=== PATIENT | female | born 1930 | race Caucasian/White ===

== ENCOUNTER → 2016-07-25 | Outpatient (CLI) | payer MEDICARE ==
[2016-07-25 07:21] LABS: Basophils # (A) 0.1 k/uL (0-0.2); Basophils % (A) 1 %; CH 33.5; CHCM 34.9; Eosinophils # (A) 0.2 k/uL (0-0.7); Eosinophils % (A) 3 %; HCT 43.6 % (34.0-46.0); HDW 2.93; HGB 14.7 gm/dL (11.4-16.0); Luc # (Auto) 0.24; Luc % (Auto) 4; Lymphocytes # (A) 1.3 k/uL (1.0-4.8); Lymphocytes % (A) 19 %; MCH 32.7 pg (25.0-35.0); MCHC 33.8 g/dL (31.0-37.0); MCV 96.6 fL (80.0-100.0); Monocytes # (A) 0.6 k/uL (0-1.0); Monocytes % (A) 8 %; Neutrophils # (A) 4.4 k/uL (1.3-7.7); Neutrophils % (A) 65 %; RBC 4.51 m/uL (3.80-5.40); RDW 13.1 % (11.5-15.5); WBC 6.7 k/uL (3.8-10.6); WBC (Perox) 7.19
[2016-07-25 07:53] LABS: ALT 28 U/L (9-52); AST 22 U/L (14-36); Alkaline Phosphatase 41 U/L (38-126); Anion Gap 8 mmol/L; Blood Urea Nitrogen 21 mg/dL (7-17); Calcium 9.5 mg/dL (8.4-10.2); Carbon Dioxide 31 mmol/L (22-30); Chloride 103 mmol/L (98-107); Cholesterol 186 mg/dL (<200); Glucose 96 mg/dL (74-99); HDL Cholesterol 41 mg/dL (40-60); Non-African American GFR(MDRD) >60 (>60 ml/min/1.73 sqM); Potassium 4.3 mmol/L (3.5-5.1); Sodium 142 mmol/L (137-145); Total Bilirubin 0.9 mg/dL (0.2-1.3); Total Protein 7.2 g/dL (6.3-8.2); Triglycerides 249 mg/dL (<150)
== END | disposition home or self-care (01) ==
LOC: LABWHC1 06:37
PROVIDERS: ATTEND Internal Medicine Cardiovascular Disease
DX: E78.5 Hyperlipidemia, unspecified (principal); I10 Essential (primary) hypertension; R06.02 Shortness of breath; I25.10 Atherosclerotic heart disease of native coronary artery without angina pectoris
CPT/HCPCS: 36415; 80053; 80061; 83880; 84439; 84443; 85025

== ENCOUNTER → 2016-10-27 | Outpatient (CLI) | payer MEDICARE ==
[2016-10-27 10:54] LABS: CHCM 34.4; HCT 40.8 % (34.0-46.0); HDW 2.73; HGB 13.7 gm/dL (11.4-16.0); MCH 32.3 pg (25.0-35.0); MCHC 33.5 g/dL (31.0-37.0); MCV 96.4 fL (80.0-100.0); Mean Platelet Volume 7.9; RBC 4.24 m/uL (3.80-5.40); WBC 7.1 k/uL (3.8-10.6)
[2016-10-27 11:08] LABS: Anion Gap 8 mmol/L; Blood Urea Nitrogen 23 mg/dL (7-17); Carbon Dioxide 29 mmol/L (22-30); Chloride 102 mmol/L (98-107); Non-African American GFR(MDRD) >60 (>60 ml/min/1.73 sqM); Potassium 4.3 mmol/L (3.5-5.1); Sodium 139 mmol/L (137-145)
== END | disposition home or self-care (01) ==
LOC: LABPAT 10:23
PROVIDERS: ATTEND Internal Medicine Cardiovascular Disease
DX: Z01.812 Encounter for preprocedural laboratory examination (principal); R07.9 Chest pain, unspecified
CPT/HCPCS: 80051; 82565; 84520; 85027

== ENCOUNTER 2016-11-05 09:24 | Inpatient (IN) | payer MEDICARE ==
[2016-10-31 11:24] VITALS: BMI 34.9
[~2016-11-05 09:24] MED LIST: ALPRAZolam 0.25 MG TAB PO PRN; ALPRAZolam 0.5 MG TAB PO PRN; ASPIRIN 325 MG TAB PO STA; ATORVASTATIN 80 MG TAB PO STA; NITROGLYCERIN SL TABS 0.4 MG TAB SUBLINGUAL PRN; SODIUM CHLORIDE 0.9% 1,000 ML in EMPTY BAG 1 BAG IV ONE
[2016-11-05] MEDS ORDERED: LIDOCAINE 2% INJ 20 MG/ML (20 ML MDV) ONE (10:23)
[2016-11-05] MEDS ORDERED: fentaNYL (PF) 50 MCG/ML 2 ML AMP ONE (10:37)
[2016-11-05] MEDS ORDERED: diphenhydrAMINE 50 MG/ML 1 ML VIAL ONE (10:37)
[2016-11-05] MEDS ORDERED: fentaNYL (PF) 50 MCG/ML 2 ML AMP IVP ONE (10:47)
[2016-11-05] MEDS ORDERED: diphenhydrAMINE 50 MG/ML 1 ML VIAL IVP ONE (10:47)
[2016-11-05] MEDS ORDERED: LIDOCAINE 2% INJ 20 MG/ML SQ ONE (10:51)
[2016-11-05] MEDS ORDERED: IOHEXOL 350 MG/ML 125ML BOTTLE INJ ONE (11:28)
[2016-11-05] MEDS ORDERED: RX INFO: IV CONTRAST WAS GIVEN 1 EACH MISC MISCELLANE PRN (11:42)
[2016-11-05] MEDS ORDERED: FUROSEMIDE 10 MG/ML 4 ML VIAL ONE (11:43)
[2016-11-05] MEDS ORDERED: FUROSEMIDE 10 MG/ML 4 ML VIAL IVP ONE (11:45)
[2016-11-05] MEDS ORDERED: POTASSIUM CHLORIDE ER 10 MEQ TAB.ER.PRT PO STA (11:51)
[2016-11-05] MEDS ORDERED: LABETALOL 5 MG/ML VIAL MDV ONE (11:54)
--- NOTE | 2016-11-05 11:57 | P.PCN ---
Date of Procedure: 11/05/16 Preoperative Diagnosis: Exertional shortness of breath and positive stress test Postoperative Diagnosis: Total occlusion of graft to the RCA. Left main disease with a patent graft to the LAD and OM branch of circumflex. Procedure(s) Performed: Left heart catheterization with selective coronary arteriography, selective injection of the 2 vein grafts and the SCHULTE graft. No LV gram Implants: Indications for Procedure: Operative Findings: Description of Procedure: HISTORY: This is a 86-year-old female with history of ischemic heart disease with previous bypass surgery with the SCHULTE graft to LAD, vein graft to the distal circumflex and the vein graft to the RCA. Patient has been complaining of exertional shortness of breath. She had a nuclear stress test that showed ischemia in the inferior wall. Patient is advised to have cardiac catheterization to see if there is any progression of ischemic heart disease. CONSENT:I have discussed the risks, benefits and alternative therapies for the above-mentioned procedure and for both sedation/analgesia as well as necessary blood product administration, if indicated, as they pertain to this patient. The patient has indicated understanding and acceptance of the risks and procedures discussed. CONSCIOUS SEDATION: Patient was given fentanyl 25 g. The duration of the sedation is 45 minutes. PROCEDURE: Patient was brought to the lab in a fasting state. Patient was given some IV sedation. The right groin is infiltrated with lidocaine and right femoral artery was entered using Seldinger technique. A 6-Marshallese catheter was left in place and selective coronary arteriography and left ventriculography was performed. Patient tolerated the procedure well. Femoral angiogram was performed and Angio-Seal was applied for hemostasis. No immediate complications were noted and patient was transferred to [facility] in a stable condition HEMODYNAMICS: The aortic pressure is 130/70. Left lower end-diastolic pressure is 25. There was no gradient across the aortic valve SELECTIVE CORONARY ARTERIOGRAPHY: LEFT MAIN: This is a normal length vessel with ostial stenosis of about 60 to 70%. 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 THE LEFT ANTERIOR DESCENDING CORONARY ARTERY: This is a good caliber vessel giving rise to 2 diagonal branches. The mid LAD has a long segment of disease with about 70% luminal narrowing. The distal LAD is seems to be free of any occlusive disease. There is a competitive flow from the SCHULTE to the distal LAD. THE LEFT CIRCUMFLEX AND IS CORONARY ARTERY: The circumflex and is coronary artery is a moderate caliber vessel with 2 OM branches and the distal PLV branch. THE RIGHT CORONARY ARTERY: This is totally occluded at the ostium and could not be selectively studied. The THE VEIN GRAFT TO THE RCA: This is totally occluded in the proximal anastomosis. THE VEIN GRAFT TO THE DISTAL CIRCUMFLEX: This is patent at the proximal and also distal anastomosis and throat its length. The distal circumflex has mild disease. THE SCHULTE GRAFT TO THE LAD: This is patent throat its length and also at least anastomosis. Excellent flows is seen to the distal LAD. LEFT VENTRICULOGRAPHY: This was not performed FINAL IMPRESSION: #1. Moderate to severe left main ostial stenosis with ectatic changes in the distal vessel. #2. Good caliber LAD with moderate to severe disease involving the midportion. #3. The circumflex coronary artery has 2 OM branches. The distal circumflex has bypass graft attached which is patent. #4. The SCHULTE graft to the LAD is patent. #5. The vein graft to the distal circumflex is patent. #6. The vein graft to the RCA is totally occluded. #7. There is elevated end-diastolic pressure. PLAN: Maximum medical therapy. Attempts could be made to stent the left main because it still supplying the diagonal branches and also OM branch of the circumflex. PROGNOSIS: Guarded
[2016-11-05] MEDS ORDERED: LABETALOL 5 MG/ML VIAL MDV IVP STA (12:01)
[2016-11-05] MEDS: SODIUM CHLORIDE 0.9% 1,000 ML IV SCH ×2 (14:45→21:41)
[2016-11-05] MEDS: FUROSEMIDE 20 MG TAB PO SCH (15:45)
[2016-11-05] MEDS: BRIMONIDINE TARTRATE 0.2% DROPS 5 ML BTL BOTH EYES SCH (20:12)
[2016-11-05] MEDS: METOPROLOL TARTRATE 50 MG TAB PO SCH (20:13)
[2016-11-05] MEDS: PRAVASTATIN SODIUM 40 MG TAB PO SCH (20:13)
[2016-11-05] MEDS: LATANOPROST 0.005% OPHTH DROPS 2.5 ML BTL BOTH EYES SCH (21:38)
[2016-11-06] MEDS: SODIUM CHLORIDE 0.9% 1,000 ML IV SCH (05:51)
[2016-11-06] MEDS: LEVOTHYROXINE 137 MCG TAB PO SCH (05:59)
[2016-11-06] MEDS: VALSARTAN 160 MG TAB PO SCH (05:59)
[2016-11-06] MEDS: ASPIRIN 81 MG CHEW PO SCH (05:59)
[2016-11-06] MEDS: HYDROCHLOROTHIAZIDE 25 MG TAB PO SCH (06:00)
[2016-11-06] MEDS: ISOSORBIDE MONONITRATE ER 30 MG TAB.ER.24H PO SCH (06:00)
[2016-11-06] MEDS: METOPROLOL TARTRATE 50 MG TAB PO SCH ×2 (06:00→21:27)
[2016-11-06] MEDS: BRIMONIDINE TARTRATE 0.2% DROPS 5 ML BTL BOTH EYES SCH ×2 (07:12→21:27)
[2016-11-06 07:23] LABS: Anion Gap 12 mmol/L; Blood Urea Nitrogen 17 mg/dL (7-17); Calcium 9.2 mg/dL (8.4-10.2); Carbon Dioxide 25 mmol/L (22-30); Chloride 103 mmol/L (98-107); Glucose 91 mg/dL (74-99); Non-African American GFR(MDRD) >60 (>60 ml/min/1.73 sqM); Potassium 3.9 mmol/L (3.5-5.1); Sodium 140 mmol/L (137-145)
[2016-11-06] MEDS ORDERED: ALPRAZolam 0.25 MG TAB PO PRN (09:18)
[2016-11-06] MEDS ORDERED: ASPIRIN 325 MG TAB PO STA (09:18)
[2016-11-06] MEDS ORDERED: NITROGLYCERIN SL TABS 0.4 MG TAB SUBLINGUAL PRN ×2 (09:18→11:24)
[2016-11-06] MEDS ORDERED: SODIUM CHLORIDE 0.9% 1,000 ML in EMPTY BAG 1 BAG IV ONE (09:18)
[2016-11-06] MEDS ORDERED: ATORVASTATIN 80 MG TAB PO STA (09:18)
[2016-11-06] MEDS ORDERED: ALPRAZolam 0.5 MG TAB PO PRN (09:18)
[2016-11-06] MEDS ORDERED: LIDOCAINE 2% INJ 20 MG/ML (20 ML MDV) ONE (10:08)
[2016-11-06] MEDS ORDERED: MIDAZOLAM 2 MG/2 ML VIAL ONE (10:25)
[2016-11-06] MEDS ORDERED: MIDAZOLAM 2 MG/2 ML VIAL IV ONE (10:25)
[2016-11-06] MEDS ORDERED: LIDOCAINE 2% INJ 20 MG/ML SQ ONE (10:26)
[2016-11-06] MEDS ORDERED: BIVALIRUDIN BOLUS 250 MG/50 ML IV ONE (10:30)
[2016-11-06] MEDS ORDERED: BIVALIRUDIN 250 MG in SODIUM CHLORIDE 0.9% 50 ML IV ONE (10:31)
[2016-11-06] MEDS ORDERED: IV FLUID CONTINUATION 1,000 ML IV ONE (10:40)
[2016-11-06] MEDS ORDERED: CLOPIDOGREL 75 MG TAB ONE ×2 (11:05)
[2016-11-06] MEDS ORDERED: IOHEXOL 350 MG/ML 125ML BOTTLE INJ ONE (11:17)
[2016-11-06] MEDS ORDERED: CLOPIDOGREL 75 MG TAB PO ONE (11:17)
[2016-11-06] MEDS ORDERED: RX INFO: IV CONTRAST WAS GIVEN 1 EACH MISC MISCELLANE PRN (11:24)
[2016-11-06] MEDS ORDERED: ZOLPIDEM 5 MG TAB PO PRN (11:24)
[2016-11-06] MEDS ORDERED: MAG HYDROX/AL HYDROX/SIMETH 30 ML CUP PO PRN (11:24)
[2016-11-06] MEDS ORDERED: ATROPINE SULFATE 0.1 MG/ML 10ML SYRINGE IV PRN (11:24)
[2016-11-06] MEDS ORDERED: SODIUM CHLORIDE 0.9% 1,000 ML IV SCH (11:30)
--- NOTE | 2016-11-06 11:49 | PCN ---
DATE OF SERVICE: November 06, 2016 PERFORMING PHYSICIAN: Juan C Palmer MD, [facility] [employer] PROCEDURE PERFORMED: Successful stenting of protected left main using 4.0 x 15 mm Xience ZOIE with good angiographic results with adjunctive use of guideliner. INDICATION: This is a pleasant 86-year-old female patient who is known to have CAD and prior coronary artery bypass grafting, who underwent heart catheterization yesterday and was found to have critical disease involving protected left main coronary artery. She was brought today for percutaneous coronary intervention. APPROACH: Right common femoral artery. COMPLICATIONS: None. LEVEL OF SEDATION: Moderate. SEDATION LENGTH: 47 minutes. PROCEDURE DESCRIPTION: After obtaining informed consent the patient was brought to the [facility]. Right common femoral artery was cannulated using micropuncture technique. The micropuncture wire passed easily and then I placed 6 Arabic sheath in the femoral artery. Subsequently anticoagulation was initiated using Angiomax. After that I did engage the left main using JL4 guiding catheter with short tip. I wired the left main using two wires; one which was Whisper wire and the second one was run -through wire as a makenna wire. I did balloon angioplasty initially using 3.0 x 12 mm balloon and then a 3.0 x 12 mm NC balloon. After that I was able to advance 4.0 x 15 mm Xience ZOIE with adjunctive use of guideliner and I was unable without the guideliner. After that I did position distant under fluoroscopy guidance and deployed the stent under 10 atmospheres for 20 seconds with the following angiogram showed good angiographic results without perforation and without dissection and without collapsing of the stent. The procedure was completed without any complications. POSTPROCEDURE MANAGEMENT: 1. Dual antiplatelet therapy. 2. Risk factor modifications. 3. Follow up with the patient. DARA
[2016-11-06] MEDS: FUROSEMIDE 20 MG TAB PO SCH ×2 (13:04→16:27)
[2016-11-06] MEDS: ACETAMINOPHEN TAB 325 MG TAB PO PRN (16:26)
[2016-11-06 17:11] LABS: Glucose,Whole Blood 112 mg/dL (75-99)
[2016-11-06] MEDS: PRAVASTATIN SODIUM 40 MG TAB PO SCH (21:27)
[2016-11-06] MEDS: LATANOPROST 0.005% OPHTH DROPS 2.5 ML BTL BOTH EYES SCH (23:59)
[2016-11-07 04:27] VITALS: RESP 18
[2016-11-07] MEDS ORDERED: hydrALAZINE HCL 20 MG/ML 1 ML VIAL IVP STA (04:41)
[2016-11-07] MEDS ORDERED: ENALAPRILAT 1.25 MG/ML 1 ML VIAL IVP STA (04:42)
[2016-11-07] MEDS: ACETAMINOPHEN TAB 325 MG TAB PO PRN (05:01)
[2016-11-07] MEDS: SODIUM CHLORIDE 0.9% 1,000 ML IV SCH (05:07)
[2016-11-07] MEDS: LEVOTHYROXINE 137 MCG TAB PO SCH (06:08)
[2016-11-07 07:48] LABS: Non-African American GFR(MDRD) >60 (>60 ml/min/1.73 sqM)
[2016-11-07] MEDS: ASPIRIN 81 MG CHEW PO SCH (08:18)
[2016-11-07] MEDS: BRIMONIDINE TARTRATE 0.2% DROPS 5 ML BTL BOTH EYES SCH (08:18)
[2016-11-07] MEDS: FUROSEMIDE 20 MG TAB PO SCH (08:18)
[2016-11-07] MEDS: METOPROLOL TARTRATE 50 MG TAB PO SCH (08:19)
[2016-11-07] MEDS: VALSARTAN 160 MG TAB PO SCH (08:19)
[2016-11-07] MEDS: HYDROCHLOROTHIAZIDE 25 MG TAB PO SCH (08:19)
[2016-11-07] MEDS: ISOSORBIDE MONONITRATE ER 30 MG TAB.ER.24H PO SCH (08:19)
[2016-11-07] MEDS ORDERED: CLOPIDOGREL 75 MG TAB PO SCH (09:00)
[2016-11-07 12:00] VITALS: BP 114/54; PULSE 62; TEMP 97.7
--- NOTE | 2016-11-07 14:30 | P.PN ---
Subjective Principal diagnosis: Chest pain This is an 86-year-old female with history of ischemic heart disease and prior bypass surgery with SCHULTE to the LAD, saphenous vein graft to the distal circumflex and vein graft to the RCA. Patient has been. Thing exertional shortness of breath and for this reason she was brought to the hospital and undergo cardiac catheterization. Catheterization revealed moderate to severe left main disease, subsequently patient underwent and plasty and stenting of the left main yesterday. She was seen and examined this morning , denies any shortness of breath, overall feeling better. EKG shows normal sinus rhythm with no changes from post-PCI. She is hemodynamically stable. Objective - Vital Signs Vital signs: Vital Signs Temp 97.7 F 11/07/16 11:57 Pulse 62 11/07/16 11:57 Resp 18 11/07/16 11:57 BP 114/54 11/07/16 11:57 Pulse Ox 97 11/07/16 11:57 Intake & Output 11/06/16 11/07/16 11/07/16 18:59 06:59 18:59 Intake Total 1067 450 220 Output Total 300 Balance 767 450 220 Weight 83.5 kg Intake: IV 87 Intake, IV Titration 800 450 0 Amount Sodium Chloride 0.9% 1, 800 0 000 ml @ 100 mls/hr IV . Q10H [facility] Rx#:[id number] Sodium Chloride 0.9% 1, 450 000 ml @ 50 mls/hr IV . Q20H [facility] Rx#:[id number] Oral 180 220 Output: Urine 300 Other: Voiding Method Toilet Toilet # Voids 1 1 # Bowel Movements 1 - Exam PHYSICAL EXAMINATION: HEENT: Head is atraumatic, normocephalic. Pupils equal, round. Neck is supple. There is no elevated jugular venous pressure. HEART EXAMINATION: Heart S1, S2 normal. No murmur or gallop heard. CHEST EXAMINATION: Lungs are clear to auscultation and precussion. No chest wall tenderness is noted on palpation or with deep breathing. ABDOMEN: Soft, nontender. Bowel sounds are heard. No organomegaly noted. Right groin soft, no evidence of any hematoma. EXTREMITIES: 2+ peripheral pulses with no evidence of peripheral edema and no calf tenderness noted. NEUROLOGIC patient is awake, alert and oriented -3. . - Labs CBC & Chem 7: 11/07/16 06:21 Labs: Abnormal Lab Results - Last 24 Hours (Table) 11/06/16 Range/Units 16:51 POC Glucose (mg/dL) 112 H (75-99) mg/dL Assessment and Plan (1) SOB (shortness of breath) Status: Acute (2) CAD (coronary artery disease) Status: Acute (3) Hx of CABG Status: Acute (4) Hyperlipemia Status: Acute Plan: Patient underwent stent placement of the left main. She may be able to be discharged home today. A follow-up appointment will be made with Dr. Jarrell in the office in one week. Patient has been instructed regarding her medication, activity, care of groin, and follow-up appointment. This is also been discussed in the son. DNP note has been reviewed, I agree with a documented findings and plan of care. Patient was seen and examined.
== END 2016-11-07 16:20 | disposition home or self-care (01) | DRG 247 ==
LOC: CATHCVL 09:24 → 6SEL 11:37 → CATHCVL 11-07 11:15
PROVIDERS: ADMIT Internal Medicine Cardiovascular Disease; ATTEND Internal Medicine Cardiovascular Disease
PROC: 4A023N7 Measurement of Cardiac Sampling and Pressure, Left Heart, Percutaneous Approach (ICD-10-PCS; 2016-11-05)
PROC: B2111ZZ Fluoroscopy of Multiple Coronary Arteries using Low Osmolar Contrast (ICD-10-PCS; 2016-11-05)
PROC: B2131ZZ Fluoroscopy of Multiple Coronary Artery Bypass Grafts using Low Osmolar Contrast (ICD-10-PCS; 2016-11-05)
PROC: B2181ZZ Fluoroscopy of Left Internal Mammary Bypass Graft using Low Osmolar Contrast (ICD-10-PCS; 2016-11-05)
PROC: B2151ZZ Fluoroscopy of Left Heart using Low Osmolar Contrast (ICD-10-PCS; 2016-11-05)
PROC: B2101ZZ Fluoroscopy of Single Coronary Artery using Low Osmolar Contrast (ICD-10-PCS; 2016-11-06)
PROC: 027034Z Dilation of Coronary Artery, One Artery with Drug-eluting Intraluminal Device, Percutaneous Approach (ICD-10-PCS; principal; 2016-11-06 10:15)
DX: I25.10 Atherosclerotic heart disease of native coronary artery without angina pectoris (principal); T82.857A Stenosis of other cardiac prosthetic devices, implants and grafts, initial encounter; I25.41 Coronary artery aneurysm; I25.82 Chronic total occlusion of coronary artery; J44.9 Chronic obstructive pulmonary disease, unspecified; R06.02 Shortness of breath; E78.00 Pure hypercholesterolemia, unspecified; E03.9 Hypothyroidism, unspecified; E78.5 Hyperlipidemia, unspecified; E66.9 Obesity, unspecified; I36.1 Nonrheumatic tricuspid (valve) insufficiency; R94.39 Abnormal result of other cardiovascular function study; I10 Essential (primary) hypertension; I25.2 Old myocardial infarction; Z79.82 Long term (current) use of aspirin; Z79.51 Long term (current) use of inhaled steroids; Z82.49 Family history of ischemic heart disease and other diseases of the circulatory system; Z79.899 Other long term (current) drug therapy
CPT/HCPCS: 80048; 82565; 93459

== ENCOUNTER 2016-11-10 10:26 | Emergency (ER) | payer MEDICARE ==
[2016-11-10 10:34] VITALS: RESP 18; TEMP 98.3
[2016-11-10] MEDS ORDERED: SODIUM CHLORIDE 0.9% 500 ML IV STA (10:37)
--- NOTE | 2016-11-10 10:41 | ED ---
General Adult HPI - General Chief complaint: Weakness Stated complaint: Weakness Time Seen by Provider: 11/10/16 10:30 Source: EMS, RN notes reviewed Mode of arrival: EMS Limitations: no limitations - History of Present Illness Initial comments: This is an 86-year-old female presents emergency Department complaining of generalized weakness. Patient also states she has some right knee pain for the last week. Patient states that last week she got a stent placed and she was discharged from the hospital on Thursday. Patient states yesterday she started to become weaker and weaker and having vomiting and diarrhea. Patient states today she's had no vomiting but has had diarrhea. Patient states she was feeling so weak she didn't feel as though she could stand up and walk on her own. Patient denies any pain. Patient denies chest pain difficulty breathing or shortness of breath per patient denies any fever chills per patient denies abdominal pain patient denies any headache patient denies numbness weakness. Patient denies any recent injury or trauma. Patient states that right knee just hurts on its own. Patient denies any swelling to the knee. - Related Data Home Medications Medication Instructions Recorded Confirmed Aspirin 162 mg PO DAILY 10/31/16 11/10/16 Brimonidine Tartrate [Alphagan P 1 drop BOTH EYES BID 10/31/16 11/10/16 0.2% Ophth Soln] Isosorbide Mononitrate ER [Imdur] 30 mg PO DAILY 10/31/16 11/10/16 Latanoprost Ophth [Xalatan 0.005%] 1 drop BOTH EYES HS 10/31/16 11/10/16 Metoprolol Tartrate [Lopressor] 100 mg PO BID 10/31/16 11/10/16 Pravastatin Sodium [Pravachol] 40 mg PO HS 10/31/16 11/10/16 Valsartan/Hydrochlorothiazide 1 tab PO DAILY 10/31/16 11/10/16 [Valsartan-Hctz 320-25 mg Tab] Acetaminophen Tab [Tylenol Tab] 650 mg PO Q4H PRN 11/05/16 11/10/16 Levothyroxine Sodium [Synthroid] 137 mcg PO DAILY 11/07/16 11/10/16 Previous Rx's Medication Instructions Recorded Clopidogrel [Plavix] 75 mg PO DAILY #30 tab 11/07/16 Nitroglycerin Sl Tabs [Nitrostat] 0.4 mg SUBLINGUAL Q5M PRN #25 tab 11/07/16 Sulfamethox-Tmp 800-160Mg [Bactrim 1 each PO Q12HR #14 tab 11/10/16 DS 800-160 mg] Allergies Allergy/AdvReac Type Severity Reaction Status Date / Time No Known Allergies Allergy Verified 11/10/16 10:37 Review of Systems ROS Statement: Those systems with pertinent positive or pertinent negative responses have been documented in the HPI. ROS Other: All systems not noted in ROS Statement are negative. Past Medical History Past Medical History: Eye Disorder, GERD/Reflux, Osteoarthritis (OA), Thyroid Disorder Additional Past Medical History / Comment(s): see DR Jarrell H & P, glaucoma , cataracts, SOB w/exertion History of Any Multi-Drug Resistant Organisms: None Reported Past Surgical History: Appendectomy, Section, Cholecystectomy, Coronary Bypass/CABG Additional Past Surgical History / Comment(s): triple bypass 2013, D & C Past Anesthesia/Blood Transfusion Reactions: No Reported Reaction Past Psychological History: No Psychological Hx Reported Smoking Status: Never smoker Past Alcohol Use History: None Reported Past Drug Use History: None Reported - Past Family History Brother(s) Family Medical History: Cancer Sister(s) Family Medical History: Cancer General Exam - General Exam Comments Initial Comments: GENERAL: Patient is well-developed and well-nourished. Patient is nontoxic and well- hydrated and is in no acute distress. ENT: Neck is soft and supple. No significant lymphadenopathy is noted. Oropharynx is clear. Moist mucous membranes. Neck has full range of motion without eliciting any pain. EYES: The sclera were anicteric and conjunctiva were pink and moist. Extraocular movements were intact and pupils were equal round and reactive to light. Eyelids were unremarkable. PULMONARY: Unlabored respirations. Good breath sounds bilaterally. No audible rales rhonchi or wheezing was noted. CARDIOVASCULAR: There is a regular rate and rhythm without any murmurs gallops or rubs. ABDOMEN: Soft and nontender with normal bowel sounds. No palpable organomegaly was noted. There is no palpable pulsatile mass. SKIN: Skin is clear with no lesions or rashes and otherwise unremarkable. NEUROLOGIC: Patient is alert and oriented x3. Cranial nerves II through XII are grossly intact. Motor and sensory are also intact. Normal speech, volume and content. Symmetrical smile. MUSCULOSKELETAL: Normal extremities with adequate strength and full range of motion. No lower extremity swelling or edema. No calf tenderness. LYMPHATICS: No significant lymphadenopathy is noted PSYCHIATRIC: Normal psychiatric evaluation. Limitations: no limitations Course Vital Signs 11/10/16 11/10/16 10:27 11:35 Temperature 98.3 F Pulse Rate 80 68 Respiratory 18 18 Rate Blood Pressure 118/58 131/63 O2 Sat by Pulse 99 97 Oximetry Medical Decision Making - Medical Decision Making EKG shows sinus rhythm with PVCs at 70 bpm CO interval is 140 QRS is 90 QT interval 384 QTC is 437. Patient's EKG shows inverted T waves in inferior leads as well as precordial leads V45 and 6 which are consistent with the old EKG that I compare to. Patient states she got up and went to the bathroom in the emergency department she feels back to her baseline as far as strength goes. Patient would like to be discharged home. - Lab Data Result diagrams: 11/10/16 10:34 11/10/16 10:34 Lab Results 11/10/16 11/10/16 11/10/16 Range/Units 10:34 10:34 10:34 WBC 6.6 (3.8-10.6) k/uL RBC 3.32 L (3.80-5.40) m/uL Hgb 10.9 L (11.4-16.0) gm/dL Hct 31.8 L (34.0-46.0) % MCV 95.7 (80.0-100.0) fL MCH 32.8 (25.0-35.0) pg MCHC 34.3 (31.0-37.0) g/dL RDW 13.2 (11.5-15.5) % Plt Count 221 (150-450) k/uL Neutrophils % 72 % Lymphocytes % 17 % Monocytes % 7 % Eosinophils % 1 % Basophils % 0 % Neutrophils # 4.8 (1.3-7.7) k/uL Lymphocytes # 1.1 (1.0-4.8) k/uL Monocytes # 0.5 (0-1.0) k/uL Eosinophils # 0.1 (0-0.7) k/uL Basophils # 0.0 (0-0.2) k/uL PT (9.0-12.0) sec INR (<1.2) APTT (22.0-30.0) sec Sodium 138 (137-145) mmol/L Potassium 4.2 (3.5-5.1) mmol/L Chloride 108 H (98-107) mmol/L Carbon Dioxide 21 L (22-30) mmol/L Anion Gap 9 mmol/L BUN 59 H (7-17) mg/dL Creatinine 0.80 (0.52-1.04) mg/dL Est GFR (MDRD) Af Amer >60 (>60 ml/min/1.73 sqM) Est GFR (MDRD) Non-Af >60 (>60 ml/min/1.73 sqM) Glucose 89 (74-99) mg/dL Calcium 8.7 (8.4-10.2) mg/dL Magnesium 2.0 (1.6-2.3) mg/dL Total Bilirubin 0.4 (0.2-1.3) mg/dL AST 16 (14-36) U/L ALT 25 (9-52) U/L Alkaline Phosphatase 28 L (38-126) U/L Total Creatine Kinase 28 L (30-135) U/L CK-MB (CK-2) 1.5 (0.0-2.4) ng/mL CK-MB (CK-2) Rel Index 5.4 Troponin I <0.012 (0.000-0.034) ng/mL Total Protein 5.7 L (6.3-8.2) g/dL Albumin 3.3 L (3.5-5.0) g/dL Urine Color Urine Appearance (Clear) Urine pH (5.0-8.0) Ur Specific [place] (1.001-1.035) Urine Protein (Negative) Urine Glucose (UA) (Negative) Urine Ketones (Negative) Urine Blood (Negative) Urine Nitrite (Negative) Urine Bilirubin (Negative) Urine Urobilinogen (<2.0) mg/dL Ur Leukocyte Esterase (Negative) Urine RBC (0-5) /hpf Urine WBC (0-5) /hpf Ur Squamous Epith Cells (0-4) /hpf Urine Bacteria (None) /hpf Hyaline Casts (0-2) /lpf Urine Mucus (None) /hpf 11/10/16 11/10/16 Range/Units 10:34 11:48 WBC (3.8-10.6) k/uL RBC (3.80-5.40) m/uL Hgb (11.4-16.0) gm/dL Hct (34.0-46.0) % MCV (80.0-100.0) fL MCH (25.0-35.0) pg MCHC (31.0-37.0) g/dL RDW (11.5-15.5) % Plt Count (150-450) k/uL Neutrophils % % Lymphocytes % % Monocytes % % Eosinophils % % Basophils % % Neutrophils # (1.3-7.7) k/uL Lymphocytes # (1.0-4.8) k/uL Monocytes # (0-1.0) k/uL Eosinophils # (0-0.7) k/uL Basophils # (0-0.2) k/uL PT 11.7 (9.0-12.0) sec INR 1.2 H (<1.2) APTT 23.2 (22.0-30.0) sec Sodium (137-145) mmol/L Potassium (3.5-5.1) mmol/L Chloride (98-107) mmol/L Carbon Dioxide (22-30) mmol/L Anion Gap mmol/L BUN (7-17) mg/dL Creatinine (0.52-1.04) mg/dL Est GFR (MDRD) Af Amer (>60 ml/min/1.73 sqM) Est GFR (MDRD) Non-Af (>60 ml/min/1.73 sqM) Glucose (74-99) mg/dL Calcium (8.4-10.2) mg/dL Magnesium (1.6-2.3) mg/dL Total Bilirubin (0.2-1.3) mg/dL AST (14-36) U/L ALT (9-52) U/L Alkaline Phosphatase (38-126) U/L Total Creatine Kinase (30-135) U/L CK-MB (CK-2) (0.0-2.4) ng/mL CK-MB (CK-2) Rel Index Troponin I (0.000-0.034) ng/mL Total Protein (6.3-8.2) g/dL Albumin (3.5-5.0) g/dL Urine Color Yellow Urine Appearance Cloudy H (Clear) Urine pH 5.5 (5.0-8.0) Ur Specific [place] 1.019 (1.001-1.035) Urine Protein Negative (Negative) Urine Glucose (UA) Negative (Negative) Urine Ketones Negative (Negative) Urine Blood Moderate H (Negative) Urine Nitrite Negative (Negative) Urine Bilirubin Negative (Negative) Urine Urobilinogen <2.0 (<2.0) mg/dL Ur Leukocyte Esterase Large H (Negative) Urine RBC 2 (0-5) /hpf Urine WBC 24 H (0-5) /hpf Ur Squamous Epith Cells 10 H (0-4) /hpf Urine Bacteria Few H (None) /hpf Hyaline Casts 42 H (0-2) /lpf Urine Mucus Rare H (None) /hpf Disposition Clinical Impression: Gastroenteritis, Dehydration, Urinary tract infection Disposition: HOME SELF-CARE Condition: Good Instructions: Gastroenteritis (ED) Prescriptions: Sulfamethox-Tmp 800-160Mg [Bactrim DS 800-160 mg] 1 each PO Q12HR #14 tab Referrals: Chan Jorgensen MD [Primary Care Provider] - 1-2 days Time of Disposition: 12:57
[2016-11-10 10:59] LABS: Basophils % (A) 0 %; CH 33.1; CHCM 34.8; Eosinophils # (A) 0.1 k/uL (0-0.7); Eosinophils % (A) 1 %; HCT 31.8 % (34.0-46.0); HDW 2.82; HGB 10.9 gm/dL (11.4-16.0); Luc # (Auto) 0.16; Luc % (Auto) 2; Lymphocytes # (A) 1.1 k/uL (1.0-4.8); Lymphocytes % (A) 17 %; MCH 32.8 pg (25.0-35.0); MCHC 34.3 g/dL (31.0-37.0); MCV 95.7 fL (80.0-100.0); Mean Platelet Volume 8.8; Monocytes # (A) 0.5 k/uL (0-1.0); Monocytes % (A) 7 %; Neutrophils # (A) 4.8 k/uL (1.3-7.7); Neutrophils % (A) 72 %; RBC 3.32 m/uL (3.80-5.40); RDW 13.2 % (11.5-15.5); WBC 6.6 k/uL (3.8-10.6); WBC (Perox) 7.14
[2016-11-10 11:12] LABS: ALT 25 U/L (9-52); AST 16 U/L (14-36); Alkaline Phosphatase 28 U/L (38-126); Anion Gap 9 mmol/L; Blood Urea Nitrogen 59 mg/dL (7-17); Calcium 8.7 mg/dL (8.4-10.2); Carbon Dioxide 21 mmol/L (22-30); Chloride 108 mmol/L (98-107); Glucose 89 mg/dL (74-99); Non-African American GFR(MDRD) >60 (>60 ml/min/1.73 sqM); Potassium 4.2 mmol/L (3.5-5.1); Sodium 138 mmol/L (137-145); Total Bilirubin 0.4 mg/dL (0.2-1.3); Total Protein 5.7 g/dL (6.3-8.2)
--- NOTE | 2016-11-10 11:21 | XR ---
EXAMINATION TYPE: XR chest 2V DATE OF EXAM: 11/10/2016 COMPARISON: Chest x-ray October 10, 2011 and August 20, 2016. HISTORY: Weakness. TECHNIQUE: Frontal and lateral views of the chest are obtained. FINDINGS: Sternotomy wires are redemonstrated. There is chronic parenchymal change without suspicious focal air space opacity, pleural effusion, or pneumothorax seen. The cardiac silhouette size is enl arged with atherosclerotic thoracic aorta. The osseous structures are demineralized. IMPRESSION: Chronic changes and cardiomegaly without acute pulmonary process.
--- NOTE | 2016-11-10 11:23 | XR ---
EXAMINATION TYPE: XR knee complete RT DATE OF EXAM: 11/10/2016 COMPARISON: NONE HISTORY: Right knee pain for one week TECHNIQUE: 3 views of the right knee were obtained. FINDINGS: Medial tibial sclerosis and mild medial joint space narrowing are noted. There is generaliz ed osseous demineralization. Small fabella is incidentally noted. No fracture or dislocation. Entheso phyte projects from the superior patellar pole. Small suprapatellar joint effusion is present. IMPRESSION: 1. No evidence of fracture or dislocation. 2. Mild bicompartmental osteoarthrosis. 3. Osteopenia. 4. Small suprapatellar joint effusion.
[2016-11-10 11:28] LABS: Creatine Kinase 28 U/L (30-135)
[2016-11-10 11:36] LABS: INR 1.2 (<1.2); Partial Thromboplastin Time 23.2 sec (22.0-30.0); Prothrombin Time 11.7 sec (9.0-12.0)
[2016-11-10 11:41] LABS: Creatine Kinase MB 1.5 ng/mL (0.0-2.4); Troponin I <0.012 ng/mL (0.000-0.034)
[2016-11-10 12:11] LABS: Appearance,Urine Cloudy (Clear); Bacteria,Urine Few /hpf; Bilirubin,Urine Negative (Negative); Glucose,Urine (UA) Negative (Negative); Ketones,Urine Negative (Negative); Leukocyte Esterase,Urine Large (Negative); Mucus,Urine Rare /hpf; Nitrite,Urine Negative (Negative); PH, Urine 5.5 (5.0-8.0); Particle Count 13268; Protein,Urine Negative (Negative); RBC,Urine 2 /hpf (0-5); Specific Gravity,Urine 1.019 (1.001-1.035); Squamous Epithelial Cell,Urine 10 /hpf (0-4); UA Billing (MACRO vs. MICRO) MICRO; Urobilinogen,Urine <2.0 mg/dL (<2.0); WBC,Urine 24 /hpf (0-5)
[2016-11-10] MEDS ORDERED: SODIUM CHLORIDE 0.9% 500 ML IV ONE (12:30)
[2016-11-10 13:23] VITALS: BP 145/65; PULSE 79
== END 2016-11-10 13:22 | disposition home or self-care (01) ==
LOC: EC 10:26
DX: K52.9 Noninfective gastroenteritis and colitis, unspecified (principal); N39.0 Urinary tract infection, site not specified; E86.0 Dehydration; M25.561 Pain in right knee; H57.9 Unspecified disorder of eye and adnexa; E07.9 Disorder of thyroid, unspecified; Z90.49 Acquired absence of other specified parts of digestive tract; Z95.1 Presence of aortocoronary bypass graft; Z79.82 Long term (current) use of aspirin; Z79.899 Other long term (current) drug therapy
CPT/HCPCS: 99285; 96365; 36415; 93005; 80053; 82550; 82553; 83735; 84484; 85025; 85610; 85730; 81001; 87086; 71020; 73562; J0696; 87077; 87186

== ENCOUNTER → 2016-12-22 | Outpatient (CLI) | payer MEDICARE ==
[2016-12-22 07:59] LABS: Basophils % (A) 1 %; CH 32.7; CHCM 34.1; Eosinophils # (A) 0.1 k/uL (0-0.7); Eosinophils % (A) 3 %; HCT 37.7 % (34.0-46.0); HDW 3.17; HGB 12.9 gm/dL (11.4-16.0); Luc # (Auto) 0.16; Luc % (Auto) 4; Lymphocytes # (A) 1.1 k/uL (1.0-4.8); Lymphocytes % (A) 25 %; MCHC 34.4 g/dL (31.0-37.0); MCV 96.2 fL (80.0-100.0); Mean Platelet Volume 8.2; Monocytes # (A) 0.3 k/uL (0-1.0); Monocytes % (A) 8 %; Neutrophils # (A) 2.6 k/uL (1.3-7.7); Neutrophils % (A) 59 %; RBC 3.92 m/uL (3.80-5.40); RDW 13.2 % (11.5-15.5); WBC 4.3 k/uL (3.8-10.6); WBC (Perox) 4.68
== END | disposition home or self-care (01) ==
LOC: LABWHC1 07:05
PROVIDERS: ATTEND Internal Medicine Cardiovascular Disease
DX: D64.9 Anemia, unspecified (principal)
CPT/HCPCS: 36415; 85025

== ENCOUNTER → 2017-02-20 | Outpatient (CLI) | payer MEDICARE ==
[2017-02-20 17:08] LABS: Basophils % (A) 0 %; CH 30.4; CHCM 32.7; Eosinophils # (A) 0.1 k/uL (0-0.7); Eosinophils % (A) 2 %; HCT 37.9 % (34.0-46.0); HDW 2.56; HGB 12.8 gm/dL (11.4-16.0); Luc # (Auto) 0.19; Luc % (Auto) 2; Lymphocytes # (A) 1.4 k/uL (1.0-4.8); Lymphocytes % (A) 16 %; MCH 31.6 pg (25.0-35.0); MCHC 33.8 g/dL (31.0-37.0); MCV 93.5 fL (80.0-100.0); Mean Platelet Volume 8.5; Monocytes # (A) 0.7 k/uL (0-1.0); Monocytes % (A) 8 %; Neutrophils # (A) 6.3 k/uL (1.3-7.7); Neutrophils % (A) 72 %; RBC 4.06 m/uL (3.80-5.40); RDW 14.5 % (11.5-15.5); WBC 8.7 k/uL (3.8-10.6); WBC (Perox) 9.15
[2017-02-20 17:19] LABS: ALT 35 U/L (9-52); AST 17 U/L (14-36); Alkaline Phosphatase 46 U/L (38-126); Anion Gap 7 mmol/L; Blood Urea Nitrogen 16 mg/dL (7-17); Calcium 9.2 mg/dL (8.4-10.2); Carbon Dioxide 29 mmol/L (22-30); Chloride 100 mmol/L (98-107); Glucose 88 mg/dL (74-99); Non-African American GFR(MDRD) >60 (>60 ml/min/1.73 sqM); Potassium 3.7 mmol/L (3.5-5.1); Sodium 136 mmol/L (137-145); Total Bilirubin 0.5 mg/dL (0.2-1.3); Total Protein 6.4 g/dL (6.3-8.2)
--- NOTE | 2017-02-20 17:22 | XR ---
EXAMINATION TYPE: XR chest 2V DATE OF EXAM: 02/20/2017 COMPARISON: 11/10/2016 HISTORY: Chest pain TECHNIQUE: Frontal and lateral views of the chest are obtained. FINDINGS: Heart appears enlarged. There is coarsening of interstitial markings. There is slight blun ting of costophrenic angles. There are sternal wires. Thoracic aorta is atheromatous. IMPRESSION: Increased interstitial markings with small pleural effusions probably relates to new mil d heart failure compared to last exam.
== END | disposition home or self-care (01) ==
LOC: LABWHC1 16:52
PROVIDERS: ATTEND Internal Medicine Cardiovascular Disease
DX: J90 Pleural effusion, not elsewhere classified (principal); R06.02 Shortness of breath; R07.9 Chest pain, unspecified
CPT/HCPCS: 36415; 71020; 80053; 83880; 85025; 85379

== ENCOUNTER 2017-02-21 09:41 | Inpatient (IN) | payer MEDICARE ==
[2017-02-21] MEDS ORDERED: NITROGLYCERIN SL TABS 0.4 MG TAB SUBLINGUAL STA (10:05)
[2017-02-21] MEDS ORDERED: SODIUM CHLORIDE 0.9% 1,000 ML IV STA (10:05)
--- NOTE | 2017-02-21 10:09 | ED ---
SOB HPI - General Chief Complaint: Shortness of Breath Stated Complaint: back pain, radiating to chest Time Seen by Provider: 02/21/17 09:49 Source: patient, RN notes reviewed Mode of arrival: wheelchair Limitations: no limitations - History of Present Illness Initial Comments: This 86-year-old female history of bypass surgery and stents who presents with complaints of shortness of breath this started yesterday morning also some sharp chest pain radiates from the right side of her back forward to her chest. She states it feels similar to what she had a gallbladder attack before her gallbladder was removed. She has had bypass surgery and stents. She saw her can closing machine tender yesterday neck she had lab work done and a chest x-ray. She states the pain was at most a 10/10 last evening is somewhat better today more constant at this time however she did take 281 mg baby aspirins this morning she does take Plavix she did not take a nitroglycerin. She does feel short of breath from it no fevers chills sweats or nausea. MD Complaint: shortness of breath, chest pain - Related Data Home Medications Medication Instructions Recorded Confirmed Aspirin 162 mg PO DAILY 10/31/16 02/21/17 Brimonidine Tartrate [Alphagan P 1 drop BOTH EYES BID 10/31/16 02/21/17 0.2% Ophth Soln] Isosorbide Mononitrate ER [Imdur] 30 mg PO DAILY 10/31/16 02/21/17 Latanoprost Ophth [Xalatan 0.005%] 1 drop BOTH EYES HS 10/31/16 02/21/17 Metoprolol Tartrate [Lopressor] 100 mg PO BID 10/31/16 02/21/17 Pravastatin Sodium [Pravachol] 40 mg PO HS 10/31/16 02/21/17 Valsartan/Hydrochlorothiazide 1 tab PO DAILY 10/31/16 02/21/17 [Valsartan-Hctz 320-25 mg Tab] Acetaminophen Tab [Tylenol Tab] 650 mg PO Q4H PRN 11/05/16 02/21/17 Levothyroxine Sodium [Synthroid] 137 mcg PO DAILY 11/07/16 02/21/17 Previous Rx's Medication Instructions Recorded Clopidogrel [Plavix] 75 mg PO DAILY #30 tab 11/07/16 Nitroglycerin Sl Tabs [Nitrostat] 0.4 mg SUBLINGUAL Q5M PRN #25 tab 11/07/16 Allergies Allergy/AdvReac Type Severity Reaction Status Date / Time No Known Allergies Allergy Verified 02/21/17 11:15 Review of Systems ROS Statement: Those systems with pertinent positive or pertinent negative responses have been documented in the HPI. ROS Other: All systems not noted in ROS Statement are negative. Past Medical History Past Medical History: Eye Disorder, GERD/Reflux, Osteoarthritis (OA), Thyroid Disorder Additional Past Medical History / Comment(s): see DR Jarrell H & P, glaucoma , cataracts, SOB w/exertion History of Any Multi-Drug Resistant Organisms: None Reported Past Surgical History: Appendectomy, Section, Cholecystectomy, Coronary Bypass/CABG, Heart Catheterization With Stent Additional Past Surgical History / Comment(s): triple bypass 2013, D & C Past Anesthesia/Blood Transfusion Reactions: No Reported Reaction Past Psychological History: No Psychological Hx Reported Smoking Status: Never smoker Past Alcohol Use History: None Reported Past Drug Use History: None Reported - Past Family History Brother(s) Family Medical History: Cancer Sister(s) Family Medical History: Cancer General Exam - General Exam Comments Initial Comments: Is a well-developed well-nourished awake alert oriented 3 female Limitations: no limitations General appearance: alert, anxious, in distress Head exam: Present: atraumatic, normocephalic, normal inspection Eye exam: Present: normal appearance, PERRL, EOMI. Absent: scleral icterus, conjunctival injection, periorbital swelling ENT exam: Present: normal exam, mucous membranes moist Neck exam: Present: normal inspection. Absent: tenderness, meningismus, lymphadenopathy Respiratory exam: Present: normal lung sounds bilaterally. Absent: respiratory distress, wheezes, rales, rhonchi, stridor, chest wall tenderness Cardiovascular Exam: Present: regular rate, normal rhythm, normal heart sounds. Absent: systolic murmur, diastolic murmur, rubs, gallop, clicks GI/Abdominal exam: Present: soft, normal bowel sounds. Absent: distended, tenderness, guarding, rebound, rigid Extremities exam: Present: normal inspection, full ROM, normal capillary refill. Absent: tenderness, pedal edema, joint swelling, calf tenderness Back exam: Present: normal inspection Neurological exam: Present: alert, oriented X3, CN II-XII intact Psychiatric exam: Present: normal affect, normal mood Skin exam: Present: warm, dry, intact, normal color. Absent: rash Course Vital Signs 02/21/17 02/21/17 09:44 11:00 Temperature 99.4 F Pulse Rate 78 72 Respiratory 18 16 Rate Blood Pressure 187/76 175/73 O2 Sat by Pulse 97 97 Oximetry - Reevaluation(s) Reevaluation #1: 02/21/17 12:02 The patient did get some relief after the nitroglycerin that was administered. Medical Decision Making - Medical Decision Making I did discuss findings with the patient family members were present patient did get relief from the chest pain after getting nitroglycerin she has also recurrent chest pain. Patient will be admitted for evaluation by cardiology. I did discuss the case Dr. Jones. - Lab Data Result diagrams: 02/21/17 10:22 02/21/17 10:22 Lab Results 02/21/17 02/21/17 02/21/17 Range/Units 10:22 10:22 10:22 WBC 9.6 (3.8-10.6) k/uL RBC 4.26 (3.80-5.40) m/uL Hgb 13.3 (11.4-16.0) gm/dL Hct 40.0 (34.0-46.0) % MCV 94.0 (80.0-100.0) fL MCH 31.2 (25.0-35.0) pg MCHC 33.2 (31.0-37.0) g/dL RDW 14.2 (11.5-15.5) % Plt Count 196 (150-450) k/uL Neutrophils % 80 % Lymphocytes % 11 % Monocytes % 6 % Eosinophils % 1 % Basophils % 0 % Neutrophils # 7.6 (1.3-7.7) k/uL Lymphocytes # 1.1 (1.0-4.8) k/uL Monocytes # 0.6 (0-1.0) k/uL Eosinophils # 0.1 (0-0.7) k/uL Basophils # 0.0 (0-0.2) k/uL PT (9.0-12.0) sec INR (<1.2) APTT (22.0-30.0) sec D-Dimer (<0.60) mg/L FEU Sodium 135 L (137-145) mmol/L Potassium 3.9 (3.5-5.1) mmol/L Chloride 101 (98-107) mmol/L Carbon Dioxide 25 (22-30) mmol/L Anion Gap 9 mmol/L BUN 13 (7-17) mg/dL Creatinine 0.56 (0.52-1.04) mg/dL Est GFR (MDRD) Af Amer >60 (>60 ml/min/1.73 sqM) Est GFR (MDRD) Non-Af >60 (>60 ml/min/1.73 sqM) Glucose 115 H (74-99) mg/dL Calcium 9.1 (8.4-10.2) mg/dL Magnesium 1.9 (1.6-2.3) mg/dL Total Bilirubin 0.8 (0.2-1.3) mg/dL AST 16 (14-36) U/L ALT 30 (9-52) U/L Alkaline Phosphatase 53 (38-126) U/L Total Creatine Kinase 23 L (30-135) U/L CK-MB (CK-2) 0.7 (0.0-2.4) ng/mL CK-MB (CK-2) Rel Index 3.0 Troponin I <0.012 (0.000-0.034) ng/mL NT-Pro-B Natriuret Pep pg/mL Total Protein 6.7 (6.3-8.2) g/dL Albumin 3.7 (3.5-5.0) g/dL Amylase <30 L (30-110) U/L Lipase 22 L (23-300) U/L 02/21/17 02/21/17 Range/Units 10:22 10:22 WBC (3.8-10.6) k/uL RBC (3.80-5.40) m/uL Hgb (11.4-16.0) gm/dL Hct (34.0-46.0) % MCV (80.0-100.0) fL MCH (25.0-35.0) pg MCHC (31.0-37.0) g/dL RDW (11.5-15.5) % Plt Count (150-450) k/uL Neutrophils % % Lymphocytes % % Monocytes % % Eosinophils % % Basophils % % Neutrophils # (1.3-7.7) k/uL Lymphocytes # (1.0-4.8) k/uL Monocytes # (0-1.0) k/uL Eosinophils # (0-0.7) k/uL Basophils # (0-0.2) k/uL PT 11.4 (9.0-12.0) sec INR 1.1 (<1.2) APTT 28.8 (22.0-30.0) sec D-Dimer 0.50 (<0.60) mg/L FEU Sodium (137-145) mmol/L Potassium (3.5-5.1) mmol/L Chloride (98-107) mmol/L Carbon Dioxide (22-30) mmol/L Anion Gap mmol/L BUN (7-17) mg/dL Creatinine (0.52-1.04) mg/dL Est GFR (MDRD) Af Amer (>60 ml/min/1.73 sqM) Est GFR (MDRD) Non-Af (>60 ml/min/1.73 sqM) Glucose (74-99) mg/dL Calcium (8.4-10.2) mg/dL Magnesium (1.6-2.3) mg/dL Total Bilirubin (0.2-1.3) mg/dL AST (14-36) U/L ALT (9-52) U/L Alkaline Phosphatase (38-126) U/L Total Creatine Kinase (30-135) U/L CK-MB (CK-2) (0.0-2.4) ng/mL CK-MB (CK-2) Rel Index Troponin I (0.000-0.034) ng/mL NT-Pro-B Natriuret Pep 1340 pg/mL Total Protein (6.3-8.2) g/dL Albumin (3.5-5.0) g/dL Amylase (30-110) U/L Lipase (23-300) U/L - Radiology Data Radiology results: report reviewed (I did review the imaging and reports no acute findings.), image reviewed Disposition Clinical Impression: Unstable angina, SOB (shortness of breath) Disposition[facility] Condition: Stable Referrals: Chan Jorgensen MD [Primary Care Provider] - 1-2 days
[2017-02-21 10:34] LABS: Basophils % (A) 0 %; CH 31.1; CHCM 33.3; Eosinophils # (A) 0.1 k/uL (0-0.7); Eosinophils % (A) 1 %; HGB 13.3 gm/dL (11.4-16.0); Luc # (Auto) 0.16; Luc % (Auto) 2; Lymphocytes # (A) 1.1 k/uL (1.0-4.8); Lymphocytes % (A) 11 %; MCH 31.2 pg (25.0-35.0); MCHC 33.2 g/dL (31.0-37.0); Mean Platelet Volume 8.2; Monocytes # (A) 0.6 k/uL (0-1.0); Monocytes % (A) 6 %; Neutrophils # (A) 7.6 k/uL (1.3-7.7); Neutrophils % (A) 80 %; RBC 4.26 m/uL (3.80-5.40); RDW 14.2 % (11.5-15.5); WBC 9.6 k/uL (3.8-10.6); WBC (Perox) 10.07
[2017-02-21 10:46] LABS: ALT 30 U/L (9-52); AST 16 U/L (14-36); Alkaline Phosphatase 53 U/L (38-126); Amylase <30 U/L (30-110); Anion Gap 9 mmol/L; Blood Urea Nitrogen 13 mg/dL (7-17); Calcium 9.1 mg/dL (8.4-10.2); Carbon Dioxide 25 mmol/L (22-30); Chloride 101 mmol/L (98-107); Glucose 115 mg/dL (74-99); INR 1.1 (<1.2); Magnesium 1.9 mg/dL (1.6-2.3); Non-African American GFR(MDRD) >60 (>60 ml/min/1.73 sqM); Partial Thromboplastin Time 28.8 sec (22.0-30.0); Potassium 3.9 mmol/L (3.5-5.1); Prothrombin Time 11.4 sec (9.0-12.0); Sodium 135 mmol/L (137-145); Total Bilirubin 0.8 mg/dL (0.2-1.3); Total Protein 6.7 g/dL (6.3-8.2)
[2017-02-21 10:58] LABS: Creatine Kinase 23 U/L (30-135)
[2017-02-21 11:12] LABS: Creatine Kinase MB 0.7 ng/mL (0.0-2.4); Troponin I <0.012 ng/mL (0.000-0.034)
--- NOTE | 2017-02-21 11:24 | XR ---
EXAMINATION TYPE: XR chest 2V DATE OF EXAM: 02/21/2017 HISTORY: Chest Pain. REFERENCE: Previous study dated 02/20/2017. FINDINGS: There has been a midline sternotomy. The heart is enlarged. There is mild vascular congestion without anahy edema. There is blunting of brendan th CP angles. I could not exclude small effusions. IMPRESSION: 1. CARDIOMEGALY AND VASCULAR CONGESTION. 2. I COULD NOT EXCLUDE SMALL EFFUSIONS.
[2017-02-21] MEDS ORDERED: HEPARIN SODIUM,PORCINE 5,000 UNIT/ML 1 ML VIAL IV ONE (12:07)
[2017-02-21] MEDS ORDERED: NITROGLYCERIN SL TABS 0.4 MG TAB SUBLINGUAL PRN (12:07)
[2017-02-21] MEDS ORDERED: SODIUM CHLORIDE 0.9% 1,000 ML IV SCH (12:15)
[2017-02-21] MEDS: HEPARIN SODIUM,PORCINE/D5W PMX 25,000 UNIT in DEXTROSE/WATER 1 500ML.BAG IV SCH (12:27)
[2017-02-21 13:32] VITALS: BMI 32.4
[2017-02-21] MEDS: METOPROLOL TARTRATE 50 MG TAB PO SCH (16:25)
[2017-02-21] MEDS: NITROGLYCERIN OINT 1 INCH/GM PACKET TOPICAL SCH ×2 (16:25→23:58)
[2017-02-21 16:35] LABS: Creatine Kinase 23 U/L (30-135)
[2017-02-21 16:45] LABS: Creatine Kinase MB 0.6 ng/mL (0.0-2.4); Troponin I <0.012 ng/mL (0.000-0.034)
[2017-02-21] MEDS: BRIMONIDINE TARTRATE 0.2% DROPS 5 ML BTL BOTH EYES SCH (20:12)
[2017-02-21] MEDS ORDERED: LATANOPROST 0.005% OPHTH DROPS 2.5 ML BTL BOTH EYES SCH (21:00)
[2017-02-21] MEDS ORDERED: PRAVASTATIN SODIUM 40 MG TAB PO SCH (21:00)
[2017-02-21 23:29] LABS: Creatine Kinase 23 U/L (30-135)
[2017-02-21 23:43] LABS: Creatine Kinase MB 0.7 ng/mL (0.0-2.4); Troponin I <0.012 ng/mL (0.000-0.034)
[2017-02-22 03:16] LABS: Cholesterol 162 mg/dL (<200); HDL Cholesterol 43 mg/dL (40-60)
[2017-02-22] MEDS: NITROGLYCERIN OINT 1 INCH/GM PACKET TOPICAL SCH (06:15)
[2017-02-22] MEDS ORDERED: LEVOTHYROXINE 137 MCG TAB PO SCH (06:30)
[2017-02-22 08:21] VITALS: RESP 16; TEMP 98.2
[2017-02-22] MEDS: METOPROLOL TARTRATE 50 MG TAB PO SCH (08:23)
[2017-02-22] MEDS: HEPARIN SODIUM,PORCINE/D5W PMX 25,000 UNIT in DEXTROSE/WATER 1 500ML.BAG IV SCH (08:41)
[2017-02-22] MEDS ORDERED: CLOPIDOGREL 75 MG TAB PO SCH (09:00)
[2017-02-22] MEDS ORDERED: VALSARTAN 160 MG TAB PO SCH (09:00)
[2017-02-22] MEDS ORDERED: ASPIRIN 325 MG TAB PO SCH (09:00)
[2017-02-22] MEDS ORDERED: ISOSORBIDE MONONITRATE ER 30 MG TAB.ER.24H PO SCH (09:00)
[2017-02-22] MEDS ORDERED: HYDROCHLOROTHIAZIDE 25 MG TAB PO SCH (09:00)
[2017-02-22] MEDS ORDERED: amLODIPine 5 MG TAB PO SCH (10:45)
[2017-02-22] MEDS: BRIMONIDINE TARTRATE 0.2% DROPS 5 ML BTL BOTH EYES SCH (11:12)
[2017-02-22] MEDS ORDERED: ACETAMINOPHEN TAB 325 MG TAB PO PRN (11:26)
--- NOTE | 2017-02-22 12:37 | P.HPIM ---
History of Present Illness H&P Date: 03/11/17 Chief Complaint: Chest discomfort 86-year-old female with history of bypass surgery and stents who presented complaint shortness of breasts and mild to moderate chest discomfort radiating from the right side of her back to her chest. Patient states this was similar to her gallbladder attack she had prior to her gallbladder being removed. She' s had bypass surgery with stent placement. Saw her editor dictionary yesterday had an EKG and was sent into the hospital for a chest x-ray patient developed chest pain yesterday that she describes as a 10 out of 10 and presented to the hospital and was admitted at that time. When I presented to see patient she was talking with her daughter and eating her lunch and ready to go home Review of Systems Constitutional: Reports as per HPI Ears, nose, mouth and throat: Reports as per HPI Cardiovascular: Reports chest pain, Reports shortness of breath Respiratory: Reports as per HPI, Reports dyspnea Gastrointestinal: Reports as per HPI Genitourinary: Reports as per HPI Musculoskeletal: Reports as per HPI Past Medical History Past Medical History: Eye Disorder, GERD/Reflux, Osteoarthritis (OA), Thyroid Disorder Additional Past Medical History / Comment(s): see DR Jarrell H & P, glaucoma , cataracts, SOB w/exertion History of Any Multi-Drug Resistant Organisms: None Reported Past Surgical History: Appendectomy, Section, Cholecystectomy, Coronary Bypass/CABG, Heart Catheterization With Stent Additional Past Surgical History / Comment(s): triple bypass 2012, D & C Past Anesthesia/Blood Transfusion Reactions: No Reported Reaction Date of Last Stent Placement:: October 2016 Past Psychological History: No Psychological Hx Reported Smoking Status: Never smoker Past Alcohol Use History: None Reported Past Drug Use History: None Reported - Past Family History Brother(s) Family Medical History: Cancer Sister(s) Family Medical History: Cancer Medications and Allergies Home Medications Medication Instructions Recorded Confirmed Type Aspirin 162 mg PO DAILY 10/31/16 02/21/17 History Brimonidine Tartrate [Alphagan P 1 drop BOTH EYES BID 10/31/16 02/21/17 History 0.2% Ophth Soln] Isosorbide Mononitrate ER [Imdur] 30 mg PO DAILY 10/31/16 02/21/17 History Latanoprost Ophth [Xalatan 0.005%] 1 drop BOTH EYES HS 10/31/16 02/21/17 History Metoprolol Tartrate [Lopressor] 100 mg PO BID 10/31/16 02/21/17 History Pravastatin Sodium [Pravachol] 40 mg PO HS 10/31/16 02/21/17 History Valsartan/Hydrochlorothiazide 1 tab PO DAILY 10/31/16 02/21/17 History [Valsartan-Hctz 320-25 mg Tab] Acetaminophen Tab [Tylenol Tab] 650 mg PO Q4H PRN 11/05/16 02/21/17 History Clopidogrel [Plavix] 75 mg PO DAILY #30 tab 11/07/16 02/21/17 Rx Levothyroxine Sodium [Synthroid] 137 mcg PO DAILY 11/07/16 02/21/17 History Nitroglycerin Sl Tabs [Nitrostat] 0.4 mg SUBLINGUAL Q5M PRN #25 tab 11/07/1602/27 Rx Allergies Allergy/AdvReac Type Severity Reaction Status Date / Time No Known Allergies Allergy Verified 02/21/17 11:15 Physical Exam Osteopathic Statement: *. No significant issues noted on an osteopathic structural exam other than those noted in the History and Physical/Consult. Vitals: Vital Signs Temp Pulse Resp BP Pulse Ox 02/22/17 09:46 168/73 02/22/17 08:20 98.2 F 80 16 160/104 96 02/22/17 04:00 98.6 F 84 18 145/83 95 02/22/17 00:00 77 18 167/86 94 L 02/21/17 20:00 99.5 F 80 18 185/77 100 02/21/17 18:21 177/73 02/21/17 16:00 88 16 185/79 96 02/21/17 12:55 97 F L 75 16 168/98 96 Intake and Output 02/21/17 02/22/17 02/22/17 22:59 06:59 14:59 Intake Total 395.708 178.035 131.14 Output Total 225 450 Balance 170.708 -271.965 131.14 Intake: Intake, IV Titration 155.708 178.035 131.14 Amount Heparin Sodium,Porcine/ 155.708 178.035 131.14 D5w Pmx 25,000 unit In Dextrose/Water 1 500ml. bag @ 12 UNITS/KG/HR 19. 92 mls/hr IV .Q24H [facility] Rx #:[id number] Oral 240 Output: Urine 225 450 Other: Voiding Method Toilet Toilet Toilet # Voids 2 1 1 Weight 82.9 kg General: [Patient awake, alert and oriented times 3. Patient in no acute distress.] HEENT: [PERRL. EOMI. No pharyngeal erythema or exudate.] Neck: [No adenopathy.] Cardiac: [Heart regular in rate and rhythm. No S3. No S4. No clicks, rubs. No murmur.] Lungs: [Clear to auscultation bilaterally.] Abdomen: [No mass. No organomegaly. Bowel sounds presnt and normoactive in all 4 quadrants.] Extremes: [No edema no cyanosis no claudication normal pulses] : [] Musculoskeletal: [No joint erythema, edema or tenderness.] Skin: [No rash.] Neurologic: [No lateralizing deficits. CN II - XII grossly intact.] Lymphatic: [No adenopathy.] Results CBC & Chem 7: 02/21/17 10:22 02/21/17 10:22 Labs: Abnormal Lab Results - Last 24 Hours (Table) 02/21/17 02/21/17 02/22/17 Range/Units 16:15 22:44 02:25 APTT 48.6 H (22.0-30.0) sec Total Creatine Kinase 23 L 23 L (30-135) U/L Thrombosis Risk Factor Assmnt - Choose All That Apply Any of the Below Risk Factors Present?: No Each Factor Represents 1 point: Medical pt on bed rest Each Risk Factor Represents 3 Points: Age 75 years or older Other congenital or acquired thrombophilia - If yes, enter type in comment: No Thrombosis Risk Factor Assessment Total Risk Factor Score: 4 Thrombosis Risk Factor Assessment Level: Moderate Risk Assessment and Plan (1) SOB (shortness of breath) Current Visit: Yes Status: Acute Code(s): R06.02 - SHORTNESS OF BREATH SNOMED Code(s): 487959019 (2) CAD (coronary artery disease) Current Visit: No Status: Acute Code(s): I25.10 - ATHSCL HEART DISEASE OF [place] CORONARY ARTERY W/O ANG PCTRS SNOMED Code(s): 31230796 (3) Hx of CABG Current Visit: No Status: Acute Code(s): Z95.1 - PRESENCE OF AORTOCORONARY BYPASS GRAFT SNOMED Code(s): 324385605 (4) Hyperlipemia Current Visit: No Status: Acute Code(s): E78.5 - HYPERLIPIDEMIA, UNSPECIFIED SNOMED Code(s): 29334668 Plan: Patient evaluated in room chest pain has resolved patient was started on amlodipine 5 mg daily By editor dictionary troponins were unremarkable Agree with cardiology will discharge patient home today and follow in the office in 3-5 days Time with Patient: Greater than 30
--- NOTE | 2017-02-22 12:44 | CONS ---
CONSULTATION DATE OF SERVICE: 02/22/2017. HISTORY: This is an 86-year-old lady with a known history of CAD, previous bypass surgery, and also PCI. She sees Dr. Jarrell in the outpatient setting. In October of this year she underwent stenting of her left main, which was a protected left main. She was doing well yesterday and she was having some shortness of breath. Then, she experienced sharp pain in the chest from the right side of her back to anteriorly. Pain was on the right side of the chest. It happened after she tried to lift something. Quality of the pain is very atypical musculoskeletal. No recurrence of the pain. Her symptoms have resolved and she is comfortable. Her blood pressure is slightly elevated. Her troponins are normal. EKG reveals normal sinus rhythm with LVH and ST-T abnormality which is unchanged from before. She is resting comfortably without symptoms at the time of my evaluation. PAST MEDICAL HISTORY: 1. History of CAD, previous bypass surgery, and PCI. 2. Hypertension. 3. Hypercholesterolemia. 4. History of recent PCI of a protected left main. 5. She is status post cholecystectomy and appendectomy. ALLERGIES: None. MEDICATIONS: At home include: 1. Imdur 30 mg daily. 2. Metoprolol tartrate 100 mg b.i.d. 3. Aspirin 81 mg daily. 4. Valsartan hydrochlorothiazide 320/25 one tab daily. 5. Synthroid 137 mcg daily. 6. Plavix 75 mg daily. 7. Aspirin 81 mg daily. REVIEW OF SYSTEMS: Unremarkable other than above-mentioned facts. PHYSICAL EXAMINATION: Blood pressure is 160/70, pulse rate is about 70 per minute, regular. HEENT unremarkable. Fundus was not examined by me. Neck is supple. There is no JVD. I do not hear a carotid bruit. Heart exam reveals S1, S2 with a short systolic murmur. Lungs are clear. Abdomen is soft, nontender. Lower extremities reveal normal pulses, no edema. Central nervous system is normal. EKG revealed a sinus mechanism with LVH and repolarization type changes. No acute findings. No new EKG changes. LABORATORY DATA: Revealed the troponins are normal. IMPRESSION: 1. Atypical chest pain in a patient with known previous coronary artery disease. 2. History of coronary artery disease with previous bypass surgery and percutaneous coronary intervention. 3. Hypertension. 4. Hyperlipidemia. RECOMMENDATIONS: Blood pressure control is slightly suboptimal. The patient's pain is quite atypical. I am recommending we add amlodipine to her regimen, increase activity, and if the blood pressure is good she can be discharged later on this evening. No other intervention is necessary. I have advised her to call the office and make an appointment to see Dr. Jarrell in the next 1 to 2 weeks. Her clinical presentation is that of atypical chest pain. Her D-dimers are normal. Troponins are normal. Blood pressure control will be optimized. Thank you very much for the consult. MMLANREL / JOHNN: [id number] /
[2017-02-22 15:30] VITALS: BP 146/73; PULSE 77
[2017-02-23] MEDS ORDERED: ASPIRIN 81 MG PO SCH (09:00)
== END 2017-02-22 17:55 | disposition home or self-care (01) | DRG 313 ==
LOC: EC 09:41 → 6SEL 12:07
PROVIDERS: ADMIT Family Medicine; ATTEND Family Medicine
DX: R07.89 Other chest pain (principal); I25.10 Atherosclerotic heart disease of native coronary artery without angina pectoris; Z95.1 Presence of aortocoronary bypass graft; I10 Essential (primary) hypertension; H40.9 Unspecified glaucoma; E78.00 Pure hypercholesterolemia, unspecified; K21.9 Gastro-esophageal reflux disease without esophagitis; Z79.02 Long term (current) use of antithrombotics/antiplatelets; Z79.82 Long term (current) use of aspirin; Z79.899 Other long term (current) drug therapy; Z98.61 Coronary angioplasty status; M19.90 Unspecified osteoarthritis, unspecified site; E07.9 Disorder of thyroid, unspecified; Z95.5 Presence of coronary angioplasty implant and graft
CPT/HCPCS: 36415; 71020; 80053; 80061; 82150; 82550; 82553; 83690; 83735; 83880; 84484; 85025; 85379; 85610; 85730; 93005; 94760; 96361; 96374; 99285

== ENCOUNTER → 2017-09-10 | Outpatient (CLI) | payer MEDICARE ==
--- NOTE | 2017-09-10 11:18 | US ---
EXAMINATION TYPE: US venous doppler duplex LE RT DATE OF EXAM: 09/10/2017 10:46 AM COMPARISON: NONE CLINICAL HISTORY: DVT I82.409. SIDE PERFORMED: right TECHNIQUE: The lower extremity deep venous system is examined utilizing real time linear array sonog oh with graded compression, doppler sonography and color-flow sonography. VESSELS IMAGED: External Iliac Vein (EIV) Common Femoral Vein Deep Femoral Vein Greater Saphenous Vein * Femoral Vein Popliteal Vein Small Saphenous Vein * Proximal Calf Veins (* superficial vessels) Right Leg: Negative for DVT Grayscale, color doppler, spectral doppler imaging performed of the deep veins of the right lower ext remity. There is normal flow, compressibility, vascular waveforms. IMPRESSION: No sonographic evidence of deep venous thrombosis within the right lower extremity.
== END | disposition home or self-care (01) ==
LOC: RADUSWWP 10:43
PROVIDERS: ATTEND Internal Medicine
DX: I82.409 Acute embolism and thrombosis of unspecified deep veins of unspecified lower extremity (principal)

== ENCOUNTER → 2018-04-03 | Outpatient (CLI) | payer MEDICARE ==
[2018-04-03 08:59] LABS: Basophils # (A) 0.1 k/uL (0-0.2); Basophils % (A) 1 %; Eosinophils # (A) 0.3 k/uL (0-0.7); Eosinophils % (A) 4 %; HCT 42.8 % (34.0-46.0); HGB 14.4 gm/dL (11.4-16.0); Lymphocytes # (A) 1.3 k/uL (1.0-4.8); Lymphocytes % (A) 20 %; MCH 32.2 pg (25.0-35.0); MCHC 33.7 g/dL (31.0-37.0); MCV 95.6 fL (80.0-100.0); Mean Platelet Volume 7.8; Monocytes # (A) 0.5 k/uL (0-1.0); Monocytes % (A) 8 %; Neutrophils # (A) 4.3 k/uL (1.3-7.7); Neutrophils % (A) 65 %; Platelet Count 231 k/uL (150-450); RBC 4.48 m/uL (3.80-5.40); RDW 12.3 % (11.5-15.5); WBC 6.6 k/uL (3.8-10.6)
[2018-04-03 16:29] LABS: Albumin 4.4 g/dL (3.80-4.90); Albumin/Globulin Ratio 1.91 (1.20-2.10); Anion Gap 8.4 mmol/L (4.00-12.00); Calcium 9.7 mg/dL (8.7-10.3); Carbon Dioxide 29.6 mmol/L (21.6-31.8); Globulin 2.3 g/dL (1.6-3.3); Total Bilirubin 0.5 mg/dL (0.2-1.2); Total Protein 6.7 g/dL (6.2-8.2)
== END | disposition home or self-care (01) ==
LOC: LABWHC1 08:06
PROVIDERS: ATTEND Internal Medicine Cardiovascular Disease
DX: E78.5 Hyperlipidemia, unspecified (principal); I50.9 Heart failure, unspecified; I25.10 Atherosclerotic heart disease of native coronary artery without angina pectoris
CPT/HCPCS: 36415; 80053; 80061; 83880; 85025

== ENCOUNTER → 2019-01-20 | Outpatient (CLI) | payer MEDICARE ==
[2019-01-20 07:34] LABS: Basophils # (A) 0.1 k/uL (0-0.2); Basophils % (A) 1 %; Eosinophils # (A) 0.2 k/uL (0-0.7); Eosinophils % (A) 3 %; HCT 43.4 % (34.0-46.0); HGB 14.2 gm/dL (11.4-16.0); Lymphocytes # (A) 1.5 k/uL (1.0-4.8); Lymphocytes % (A) 23 %; MCH 31.9 pg (25.0-35.0); MCHC 32.8 g/dL (31.0-37.0); MCV 97.5 fL (80.0-100.0); Mean Platelet Volume 7.9; Monocytes # (A) 0.5 k/uL (0-1.0); Monocytes % (A) 7 %; Neutrophils # (A) 3.9 k/uL (1.3-7.7); Neutrophils % (A) 62 %; Platelet Count 207 k/uL (150-450); RBC 4.45 m/uL (3.80-5.40); RDW 12.8 % (11.5-15.5); WBC 6.4 k/uL (3.8-10.6)
[2019-01-20 11:30] LABS: Anion Gap 9.9 mmol/L (4.00-12.00); BUN/Creat Ratio 27.14 Ratio (12.00-20.00); Calcium 9.8 mg/dL (8.7-10.3); Carbon Dioxide 30.1 mmol/L (21.6-31.8); Chol/HDL Ratio 4.38; LDL Cholesterol,Calculated 99.4 mg/dL (0.0-131.0); Potassium 4.6 mmol/L (3.5-5.5); VLDL Calculation 42.6 mg/dL (5.00-40.00)
== END | disposition home or self-care (01) ==
LOC: LABWHC1 06:45
PROVIDERS: ATTEND Family Medicine
DX: E03.9 Hypothyroidism, unspecified (principal); I10 Essential (primary) hypertension; E78.5 Hyperlipidemia, unspecified
CPT/HCPCS: 36415; 80048; 80061; 84443; 84450; 84460; 85025